=== PATIENT | male | born 1930 | race Caucasian/White ===

== ENCOUNTER 2017-02-17 09:49 | Inpatient (IN) | payer MEDICARE, OTHER ==
--- NOTE | ~2017-02-17 | DS ---
Discharge Summary [id number] [place]. [address] NAME: ROYAL BARTLETT : 30 STATUS : DIS IN PAT#: [id number] AGE: 86 ADM/REG DATE : 02/17/17 MR#: [id number] REPORT SERV DATE: 02/21/17 DICTATED BY: DATE: REPORT STATUS : Draft TRANSCRIBED BY: MODL DATE: 02/20/17 ADMISSION DATE: 02/17/2017 DISCHARGE DATE: 02/20/2017 DISCHARGE DIAGNOSES: 1. Suspected pneumonia. 2. Chronic obstructive pulmonary disease, acute exacerbation. 3. Mild increase in baseline creatinine. 4. Leukocytosis, acute. 5. Acute on chronic hypoxic respiratory failure. 6. Hyperglycemia. 7. Idiopathic thrombocytopenic purpura, chronic. 8. Constipation. CONSULTATIONS: Marcell Shen M.D., [facility]. PERTINENT TESTS AND PROCEDURES: 1. Chest x-ray 02/17/2017. Impression: No acute cardiopulmonary abnormality. Stable chronic interstitial lung changes. 2. CT of chest without contrast, 02/18/2017. Impression:. a. Minimal infiltrate in the posterior right lower lobe which may represent pneumonia. This is superimposed on bilateral reticular fibrotic opacity which is similar compared with 12/02/2016. b. 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 Left renal artery stent. Abdominal aortic stent graft only partially imaged. c. No significant abnormalities otherwise. 3. Blood cultures x2 sites, specimen collected on 02/17/2017, preliminary result, no growth at one day. 4. Sputum culture sample specimen collected 02/17/2017, test not performed due to poor quality specimen. 5. Wound care evaluation to chronic right lower extremity ischemic ulcer. Recommendations included cleansing wound with wound equipment cleaner and tester, pat dry, apply a small piece of Aquacel Ag to wound and secure with Mepilex border dressing. Change every three days. HOSPITAL COURSE: Please refer to history and physical dated 02/17/[address] Lissette Alexis for complete details pertaining to the patient's health history and initial presentation upon admission. Briefly, the patient is an 86-year-old male with a past medical history significant for moderate COPD, chronic shortness of breath on exertion, chronic hypoxemia, pulmonary fibrosis, obstructive sleep apnea/CPAP, ITP, peripheral vascular disease, and restless legs syndrome. The patient presented to the emergency department on 02/17/2017 with complaints of fever, increasing shortness of breath, and cough with yellowish green sputum production present two to three days prior to ER visit. Discharge Summary [address] [place]. [address] NAME: ROYAL BARTLETT : 30 STATUS : DIS IN PAT#: [id number] AGE: 86 ADM/REG DATE : 02/17/17 MR#: [id number] REPORT SERV DATE: 02/21/17 DICTATED BY: DATE: REPORT STATUS : Draft TRANSCRIBED BY: MODL DATE: 02/20/17 Initial assessment concerning for likely pneumonia and acute exacerbation of chronic obstructive pulmonary disease in the setting of chronic respiratory failure. The patient was admitted for further evaluation and treatment. 1. Suspected pneumonia. The patient's temperature max during this admission was 101.4 degrees. The patient has been afebrile for over 48 hours now. Sputum culture was not completed secondary to poor quality specimen. CT of the chest was concerning for minimal infiltrate in the post right lower lung likely pneumonia. The patient was placed on antibiotics and IV methylprednisolone. Levaquin dose was adjusted to every 48 hours secondary to mild increase in creatinine. The patient will continue Levaquin 750 mg p.o. every 48 hours. Next dose is on and 02/23/2017 to complete a total seven-day therapy. The patient will transition from IV methylprednisolone to prednisone 20 mg p.o. twice daily starting 02/21/2017 with taper to continue through 02/23/2017. At the time of discharge, the patient's respiratory status has almost returned to baseline, will follow up within next week with Pulmonology. 2. Mild increase in creatinine. Baseline creatinine appears to be around 1.2. The patient states he takes Advil PM every night routinely. He was advised to discontinue this med due to elevated creatinine. Excretion of sodium is 0.93% indicating prerenal. Continue to avoid nephrotoxic medications upon discharge and resume Avapro today evening dose. 3. Leukocytosis, acute. Upon admission the patient's white blood count was reported to be 12,500 secondary to infection. White blood count trended down on 02/18/2017 and then spiked to 22.8 on 02/19/2017, the spike was likely related to aggressive treatment with IV methylprednisolone. White blood count has trended down today and is 20.2. The patient is afebrile and clinically showing significant signs of improvement. 4. Acute on chronic hypoxic respiratory failure. The patient is under the outpatient care of Dr. Perry. The patient has home O2 that was set up prior to this admission. O2 saturations on day of discharge resting, room air sat at rest 95%, exercise saturation on room air 88-94%, exercise saturation on oxygen 95% at 2 L. Continue home O2 as needed and nighttime CPAP. 5. Hyperglycemia. The patient has no history of diabetes, A1c is 5.7, this is secondary to aggressive steroid therapy. The patient received Levemir and sliding scale insulin during this admission. No additional outpatient agents were required for hyperglycemia, this should resolve once the patient's dose of steroid have been completed on 02/23/2017. 6. ITP. This is chronic and managed per Dr. Shen at [facility]. The patient's Nplate therapy was held during admission. The patient will follow up next week with Oncology. 7. Constipation. The patient will continue bowel regimen at home to include MiraLAX and Senokot as needed. DISCHARGE CONDITION: At the time of discharge, the patient is hemodynamically stable. DISCHARGE DIET: Low-cholesterol/low-fat diet. DISCHARGE MEDICATIONS: 1. Allopurinol 300 mg p.o. daily. Discharge Summary [address] [address] NAME: ROYAL BARTLETT : 30 STATUS : DIS IN PAT#: [id number] AGE: 86 ADM/REG DATE : 02/17/17 MR#: [id number] REPORT SERV DATE: 02/21/17 DICTATED BY: DATE: REPORT STATUS : Draft TRANSCRIBED BY: MODL DATE: 02/20/17 2. Norvasc 5 mg tablet p.o. daily. 3. Avapro 300 mg tablet p.o. daily. Next dose to start in the morning, temporally held due to mild increase in creatinine. 4. Imdur 30 mg tablet p.o. daily. 5. Claritin 10 mg tablet p.o. daily. 6. MiraLAX 17 g p.o. daily at bedtime. Hold for diarrhea. 7. Mirapex 1 mg tablet p.o. at bedtime. 8. Incruse Ellipta 62.5 mcg one puff inhale daily. 9. Prednisone 20 mg tablet p.o. twice daily, starting tomorrow to be titrated to stop on 02/23/2017. 10.Albuterol metered dose inhaler, one puff as needed for shortness of breath every 4 hours. 11.Advair Diskus 25/50 mcg one puff inhale twice daily. 12.DuoNeb inhalation therapy every 4 hours as needed. 13.Nplate injection weekly on Wednesdays to be restarted per Oncology. 14.Hjht-kpt-lwerzsc Tears one drop in each eye twice daily as needed. 15.Docusate sodium 100 mg tablet p.o. daily as needed. 16.Florajen eall-oax-bfcnmmv tablet p.o. daily. 17.Tylenol 325 mg tablet, take 650 mg p.o. every 4 hours as needed. 18.Levaquin 750 mg tablet p.o. every 48 hours x2 doses on 02/21/2017 and 02/23/2017 to complete a total seven-day therapy then stop. DISCHARGE INSTRUCTIONS: 1. Follow up with Dr. Perry, Pulmonology, within one week. 2. Follow up with Dr. Barth, [facility], within one week. 3. Follow up with Dr. Abhi Bowden, Primary Care, in two weeks. 4. Follow up with Dr. Shen, [facility], next Thursday. 5. Follow up with Dr. Dahl, Cardiology, next appointment scheduled in two weeks. The patient was instructed to return to the emergency department for any acute onset of fever 100.4 or greater lasting more than one hour, increased shortness of breath requiring higher supplemental oxygen from baseline or any other deviations from baseline status at the time of this discharge. DICTATED BY: TEVIN Gee/ÁNGEL TEVIN Gee / [id number] CC: Discharge Summary [address] [address] NAME: ROYAL BARTLETT : 30 STATUS : DIS IN PAT#: [id number] AGE: 86 ADM/REG DATE : 02/17/17 MR#: [id number] REPORT SERV DATE: 02/21/17 DICTATED BY: DATE: REPORT STATUS : Draft TRANSCRIBED BY: ÁNGEL DATE: 02/20/17 MD Abhi Polanco II, M.D.
--- NOTE | ~2017-02-17 | HP ---
History And Physical [id number] [place]. [address] NAME: ROYAL BARTLETT : 30 STATUS : ADM IN [facility]#: [id number] AGE: 86 ADM/REG DATE : 02/17/17 MR#: [id number] REPORT SERV DATE: 02/17/17 DICTATED BY: LISSETTE FRANKLIN DATE: 02/17/17 REPORT STATUS : Draft TRANSCRIBED BY: MODL DATE: 02/17/17 DATE OF ADMISSION: 02/17/2017 CHIEF COMPLAINT: Fever, increasing shortness of breath, yellowish green sputum production, wheezing for two to three days. HISTORY OF PRESENT ILLNESS: This is a very pleasant 86-year-old gentleman. He has a history of pulmonary fibrosis, history of COPD, obstructive sleep apnea. He is on oxygen at night and intermittently during the day. He has chronic ITP under Dr. Shen. He is taking Nplate injections every Thursday per Dr. Shen's recommendation. He also has a history of hypertension and history of gout. Presenting today to [facility] [place], accompanied by his with increasing shortness of breath, cough, wheezing, and productive greenish sputum for two to three days. Also, progressively weakness and some diarrhea. He says that his sputum is dark greenish-yellowish in color. It is accompanied by fever as well as wheezes as well as nasal drip. No nausea or vomiting. No headaches. No chest pain. No palpitations. No hematemesis, melena, hematochezia, but he had some subjective fevers and obviously chills. The patient denies any current antibiotic use. No sick contacts. Also, he does have a history of pneumonia. He has been evaluated in the emergency room, and after initial evaluation, Hospitalist Service has been asked for admission, further evaluation, and treatment. PAST MEDICAL HISTORY: Significant for COPD, obstructive sleep apnea, steroid myopathy, ITP, basal cell cancer, peripheral vascular disease with a prior stent on the right leg also, history of restless legs syndrome. PAST SURGICAL HISTORY: Include tonsillectomy, cholecystectomy, renal stent, hernia repair, abdominal aortic aneurysm repair, basal cell cancer removal, and stent on the right leg. SOCIAL HISTORY: He is not a smoker, he quit about 40 years ago. No alcohol. No IV drugs. FAMILY HISTORY: Significant for cancer and coronary artery disease. MEDICATIONS AT HOME: Include DuoNeb, Ventolin, allopurinol, Norvasc, Artificial Tears, Colace, Advair Diskus, Avapro, Imdur, Claritin, Mirapex, Incruse Ellipta, Nplate ingestion, and Florajen dtvp-xoi-wskesyk probiotic. REVIEW OF SYSTEMS: A 14-point review of system has been obtained and pertinent positive has been listed into the history of present illness. Otherwise, negative except those underlying above. PHYSICAL EXAMINATION: VITAL SIGNS: T-max 101.4, blood pressure 180/81, heart rate 90, respiratory rate 26, saturating about 96% on 3 L of oxygen. GENERAL: He is a very pleasant, well-developed, well-nourished gentleman, in mild-to- moderate respiratory distress. He is alert and oriented x3. He is a full code. He follows all his commands appropriately. History And Physical [address] [address] NAME: ROYAL BARTLETT : 30 STATUS : ADM IN [facility]#: [id number] AGE: 86 ADM/REG DATE : 02/17/17 MR#: [id number] REPORT SERV DATE: 02/17/17 DICTATED BY: LISSETTE FRANKLIN DATE: 02/17/17 REPORT STATUS : Draft TRANSCRIBED BY: ÁNGEL DATE: 02/17/17 HEENT: Pupils equal, round, reactive to light. Extraocular movements intact. No JVD. No lymphadenopathy. No thyromegaly appreciated. CHEST: Bilateral air entry. Bilateral wheezes and rhonchi, I do not appreciate. There are some fine inspiratory crackles at the bases. CARDIOVASCULAR: Regular rate and rhythm. S1, S2 positive. No S3, no S4. No murmurs, rubs, or gallops appreciated. ABDOMEN: Soft with positive bowel sounds. Nontender. No guarding. No rebound. EXTREMITIES: No clubbing, cyanosis, or edema. NEUROLOGIC: He is alert and oriented x3. Nonfocal. He follows all his commands appropriately. LABORATORY DATA: Labs from today ABG, 745, 32, 76, on 32% FiO2. His sodium is 137, potassium 5.3, chloride 103, CO2 of 27, BUN 22, creatinine is 1.24, glucose is 161. His liver function test shows a total bilirubin of 0.7, alkaline phosphatase 173, ALT 31, AST 25. Also, his white count is 12.5, hemoglobin 14.2, hematocrit 43, platelets 286. His blood cultures currently are pending. EKG shows normal sinus rhythm with normal EKG. Chest x-ray, PA and lateral, has shown no acute cardiopulmonary abnormality, stable chronic interstitial lung disease. ASSESSMENT: This is an 86-year-old gentleman with increasing shortness of breath, cough, fever, yellowish sputum production with 1. Likely pneumonia. 2. Acute exacerbation of chronic obstructive pulmonary disease. 3. Acute respiratory failure. 4. History of pulmonary fibrosis. 5. History of obstructive sleep apnea. 6. Chronic idiopathic thrombocytopenic purpura. 7. Hypertension. 8. History of peripheral arterial disease. 9. History of hypertension. 10.Hyperglycemia. 11.History of gout. PLAN: 1. The patient is going to be admitted to Hospitalist Service. Keep him on oxygen. Start him on Levaquin. Start him on steroids with rapid tapering vigorous nebulizer treatment as supportive care. Start him on Mucinex and Nasonex. Check a procalcitonin level. Check sputum, Gram stain, and culture. Check influenza screen A and B. We will get a CAT scan of the chest without contrast in the morning. 2. History of obstructive sleep apnea, on CPAP. We will continue his home CPAP. 3. History of chronic ITP. We will ask Dr. Shen to see the patient since he is receiving his Nplate injections every Thursday, [facility]. 4. History of hypertension. Continue his home medications. 5. Hyperglycemia. Accu-Cheks before meals and at bedtime. Sliding scale insulin subcutaneously level 1 and check hemoglobin A1c. 6. History of gout. We will continue his home medications. 7. Peripheral vascular disease. We will provide reasonable pain and nausea control as History And Physical [address] [address] NAME: ROYAL BARTLETT : 30 STATUS : ADM IN [facility]#: [id number] AGE: 86 ADM/REG DATE : 02/17/17 MR#: [id number] REPORT SERV DATE: 02/17/17 DICTATED BY: LISSETTE FRANKLIN DATE: 02/17/17 REPORT STATUS : Draft TRANSCRIBED BY: MODL DATE: 02/17/17 well as GI and DVT prophylaxis with SCDs, that has been discussed extensively with the patient and the patient's . All the questions have been answered in full. Further workup and recommendation pending above. CF/MODL Lissette Franklin M.D. / [id number] CC: MD Abhi Polanco II, M.D.
[~2017-02-17 09:49] MED LIST: ACET500CAP PO; ADVAIR250 INH; ADVIL PO; AMB10 PO; ARTHRITIS CREAM TOP; ASAB PO; AUG875 PO; AVAP150 PO; AVAPRO300 MG PO; BEN25 PO; CALTRAT600 PO; CO Q-10200 MG PO; COQ-10200 MG PO; DSS PO; DUONEB INH; FERRETTS325 MG PO; FISH-EPA1000 MG PO; FLOMAX4 PO; HALF81 PO; HEMOCYTE324 MG PO; IRON PO; IRON160 MG PO; L20 PO; LEVAQUIN750 MG PO; LOP50 PO; MEDROLPAK4 PO; MELATONIN5 M1 PO; MIRAPEX1 MG PO; MIRAPEX5 PO; MUCINEX600 MG PO; MULTIVITAMI1 PO; NORV5 PO; OMNICEF300 PO; P20 PO; P5 PO; PROMEGA PO; RITUXAN IV; TOPXL50 PO; VITAMIN D1000 UNI1 PO; X25 PO; Z300 PO; ZITH250 PO; [UNRECOGNIZED DRUG - OTHER] IM
[2017-02-17 11:08] LABS: BASOPHILS 0.6 %; BASOPHILS ABSOLUTE 0.08 10/3/uL (0.0-0.16); EOSINOPHILS 2.3 %; EOSINOPHILS ABSOLUTE 0.29 10/3/uL (0.0-0.53); ER CBC TAT 0 Hrs 08 Mins; HEMOGLOBIN 14.2 g/dL (13.6-17.8); IMMATURE GRANULOCYTES 2.7 %; IMMATURE GRANULOCYTES ABSOLUTE 0.34 10/3/uL (0.0-0.11); LYMPHOCYTES 12.4 %; LYMPHOCYTES ABSOLUTE 1.55 10/3/uL (0.67-4.30); MANUAL DIFF NO %; MEAN CORPUSCULAR HEMOGLOB 28.4 pg (26.0-34.0); MEAN PLATELET VOLUME 9.9 fL (9.2-13.0); MONOCYTES 9.1 %; MONOCYTES ABSOLUTE 1.14 10/3/uL (0.21-1.20); NEUTROPHILS 72.9 %; NEUTROPHILS ABSOLUTE 9.12 10/3/uL (2.02-8.40); PLATELET COUNT 286 10/3/uL (150-400); RBC DISTRIBUTION WIDTH 16.7 % (12.0-16.0); WHITE BLOOD CELLS 12.5 10/3/uL (4.5-10.5)
[2017-02-17 11:11] LABS: ALLENS TEST Pos; BE (BASE EXCESS) -1.1 MEQ/L (0 +/- 2.5); CARBOXYHEMOGLOBIN 1.8 % (0-3); HCO3 (ACTUAL BICARBONATE) 21.9 MEQ/L (23-27); HEMOBLOGIN CONTENT 14.4 G/DL (14-18); INSTRUMENT SERIAL # 8087; METHEMOGLOBIN 0.3 % (0-3); OPERATOR ID 35091; PCO2 (CO2 TENSION) 32 MMHG (35-45); PO2 (O2 TENSION) 76 MMHG (79-93); SAMPLE Arterial; pH 7.45 (7.37-7.43)
[2017-02-17 11:29] LABS: BAND NEUTROPHILS 2 %; EOSINOPHILS 2 %; EOSINOPHILS ABSOLUTE (CALC) 0.25 10/3/uL (0.0-0.53); ER DIFF TAT 0 Hrs 29 Mins; LYMPHOCYTES 9 %; LYMPHOCYTES ABSOLUTE (CALC) 1.13 10/3/uL (0.67-4.30); MONOCYTES 9 %; MONOCYTES ABSOLUTE (CALC) 1.13 10/3/uL (0.21-1.20); SEGMENTED NEUTROPHIL (0) 78 %; TOTAL NUCLEATED CELLS 100
[2017-02-17 11:30] LABS: ALBUMIN 3.6 G/DL (3.5-5.0); CALCIUM, SERUM 9.3 MG/DL (8.5-10.4); CHLORIDE, SERUM 103 MMOL/L (96-112); CREATININE 1.24 MG/DL (0.70-1.30); GFR AFRICAN AMERICAN 61 ML/MIN (>=60); GFR NON AFRICAN AMERICAN 52 ML/MIN (>=60); GLOBULIN 3.5 G/DL (2.5-4.1); PLATELET ESTIMATE ADQ (ADEQUATE); RBC MORPHOLOGY NORM (NORMAL); SGOT(AST) 25 U/L (5-40); SGPT(ALT) 31 U/L (5-65); SODIUM, SERUM 137 MMOL/L (135-148); TOTAL BILIRUBIN 0.7 MG/DL (0-1.2); TOTAL PROTEIN 7.1 G/DL (6.0-8.5)
[2017-02-17 11:31] LABS: ALKALINE PHOSPHATASE 173 U/L (45-117); BUN (BLOOD UREA NITROGEN) 22 MG/DL (6-23); CO2 (CARBON DIOXIDE) 27 MMOL/L (24-34); GLUCOSE, SERUM 161 MG/DL (60-99); POTASSIUM, SERUM 5.3 MMOL/L (3.5-5.3)
[2017-02-17] MEDS ORDERED: DUONEB INH (11:32)
[2017-02-17] MEDS ORDERED: Z300 PO (11:33)
[2017-02-17] MEDS ORDERED: AVAPRO300 MG PO (11:33)
[2017-02-17] MEDS ORDERED: MIRAPEX1 MG PO (11:33)
[2017-02-17] MEDS ORDERED: NORV5 PO (11:33)
[2017-02-17] MEDS ORDERED: INCRUSE ELLI62.5 MCG INH (11:34)
[2017-02-17] MEDS ORDERED: NPLATE IM (11:34)
[2017-02-17] MEDS ORDERED: IMDUR30 PO (11:34)
[2017-02-17] MEDS ORDERED: ADVAIR250 INH (11:34)
[2017-02-17] MEDS ORDERED: TEARS PURE OPH (11:35)
[2017-02-17] MEDS ORDERED: VENTOLIN HFA PO (11:35)
[2017-02-17] MEDS ORDERED: D.O.S.100 MG PO (11:36)
[2017-02-17] MEDS ORDERED: FLORAGEN PO (11:36)
[2017-02-17] MEDS ORDERED: CLARIT10 PO (11:36)
[2017-02-17 16:45] LABS: FREE T4 1.17 NG/DL (0.76-1.46); TROPONIN I <0.02 NG/ML (<0.05)
[2017-02-17 16:47] LABS: PHOSPHORUS, SERUM 1.8 MG/DL (2.5-4.5)
[2017-02-17 17:06] LABS: INTERNATIONAL NORMAL RATI 1.2 UNITS (-); PARTIAL THROMBO TIME 36.4 SEC (22.5-37.2)
[2017-02-17 18:03] LABS: PROCALCITONIN 0.11 ng/mL (<0.5)
[2017-02-17 20:09] LABS: ASCORBIC ACID (UR NOT ORDER) NEG (NEG); BILIRUBIN, URINE NEGATIVE (NEG); KETONE, URINE NEGATIVE (NEG); LEUKOCYTE ESTERASE(NOT OR NEG (NEG); WBC (NOT ORDERED) (RFLEX) 5 (0-5)
[2017-02-18 05:21] LABS: A/G RATIO 0.8 (0.7-1.9); ALBUMIN 2.9 G/DL (3.5-5.0); CALCIUM, SERUM 8.6 MG/DL (8.5-10.4); CHLORIDE, SERUM 101 MMOL/L (96-112); CREATININE 1.46 MG/DL (0.70-1.30); GFR AFRICAN AMERICAN 50 ML/MIN (>=60); GFR NON AFRICAN AMERICAN 43 ML/MIN (>=60); GLOBULIN 3.5 G/DL (2.5-4.1); POTASSIUM, SERUM 4.7 MMOL/L (3.5-5.3); SGOT(AST) 14 U/L (5-40); SGPT(ALT) 23 U/L (5-65); SODIUM, SERUM 131 MMOL/L (135-148); TOTAL PROTEIN 6.4 G/DL (6.0-8.5)
[2017-02-18 05:22] LABS: ALKALINE PHOSPHATASE 132 U/L (45-117); BUN (BLOOD UREA NITROGEN) 27 MG/DL (6-23); CO2 (CARBON DIOXIDE) 19 MMOL/L (24-34); GLUCOSE, SERUM 332 MG/DL (60-99)
[2017-02-18 05:24] LABS: BASOPHILS 0.5 %; BASOPHILS ABSOLUTE 0.06 10/3/uL (0.0-0.16); EOSINOPHILS 0.2 %; EOSINOPHILS ABSOLUTE 0.02 10/3/uL (0.0-0.53); HEMATOCRIT 39.5 % (40.0-51.0); IMMATURE GRANULOCYTES 3.4 %; IMMATURE GRANULOCYTES ABSOLUTE 0.39 10/3/uL (0.0-0.11); LYMPHOCYTES 6.2 %; MEAN CORPUS HGB CONC 32.9 g/dL (32.0-36.0); MEAN CORPUSCULAR VOLUME 85.1 fL (80-100); MEAN PLATELET VOLUME 10.2 fL (9.2-13.0); MONOCYTES 1.9 %; MONOCYTES ABSOLUTE 0.22 10/3/uL (0.21-1.20); NEUTROPHILS 87.8 %; NEUTROPHILS ABSOLUTE 9.98 10/3/uL (2.02-8.40); PLATELET COUNT 263 10/3/uL (150-400); RBC DISTRIBUTION WIDTH 16.3 % (12.0-16.0); RED CELL COUNT 4.64 10/6/uL (4.7-6.1); WHITE BLOOD CELLS 11.4 10/3/uL (4.5-10.5)
[2017-02-18 05:27] LABS: MANUAL DIFF NO %
[2017-02-19 07:06] LABS: BASOPHILS 0.1 %; BASOPHILS ABSOLUTE 0.03 10/3/uL (0.0-0.16); EOSINOPHILS 0 %; EOSINOPHILS ABSOLUTE 0.01 10/3/uL (0.0-0.53); HEMATOCRIT 40.1 % (40.0-51.0); HEMOGLOBIN 13.3 g/dL (13.6-17.8); IMMATURE GRANULOCYTES ABSOLUTE 0.68 10/3/uL (0.0-0.11); LYMPHOCYTES 4.6 %; LYMPHOCYTES ABSOLUTE 1.04 10/3/uL (0.67-4.30); MEAN CORPUS HGB CONC 33.2 g/dL (32.0-36.0); MEAN CORPUSCULAR VOLUME 84.4 fL (80-100); MEAN PLATELET VOLUME 10.4 fL (9.2-13.0); MONOCYTES 4.4 %; NEUTROPHILS 87.9 %; NEUTROPHILS ABSOLUTE 20.01 10/3/uL (2.02-8.40); RBC DISTRIBUTION WIDTH 16.2 % (12.0-16.0); RED CELL COUNT 4.75 10/6/uL (4.7-6.1)
[2017-02-19 07:08] LABS: MANUAL DIFF NO %; PLATELET COUNT 350 10/3/uL (150-400); WHITE BLOOD CELLS 22.8 10/3/uL (4.5-10.5)
[2017-02-19 07:10] LABS: BUN (BLOOD UREA NITROGEN) 40 MG/DL (6-23); CALCIUM, SERUM 9.2 MG/DL (8.5-10.4); CHLORIDE, SERUM 103 MMOL/L (96-112); CO2 (CARBON DIOXIDE) 22 MMOL/L (24-34); CREATININE 1.64 MG/DL (0.70-1.30); GFR AFRICAN AMERICAN 43 ML/MIN (>=60); GFR NON AFRICAN AMERICAN 37 ML/MIN (>=60); GLUCOSE, SERUM 285 MG/DL (60-99); POTASSIUM, SERUM 4.9 MMOL/L (3.5-5.3); SODIUM, SERUM 135 MMOL/L (135-148)
[2017-02-20 06:20] LABS: CREATININE, URINE 68.2 MG/DL
[2017-02-20 06:34] LABS: HEMATOCRIT 39.1 % (40.0-51.0); HEMOGLOBIN 13.5 g/dL (13.6-17.8); MEAN CORPUS HGB CONC 34.5 g/dL (32.0-36.0); MEAN CORPUSCULAR HEMOGLOB 29.2 pg (26.0-34.0); MEAN CORPUSCULAR VOLUME 84.6 fL (80-100); MEAN PLATELET VOLUME 9.9 fL (9.2-13.0); PLATELET COUNT 314 10/3/uL (150-400); RBC DISTRIBUTION WIDTH 16.2 % (12.0-16.0); RED CELL COUNT 4.62 10/6/uL (4.7-6.1); WHITE BLOOD CELLS 20.2 10/3/uL (4.5-10.5)
[2017-02-20 06:35] LABS: MANUAL DIFF YES %
[2017-02-20 06:39] LABS: BUN (BLOOD UREA NITROGEN) 41 MG/DL (6-23); CALCIUM, SERUM 8.8 MG/DL (8.5-10.4); CHLORIDE, SERUM 104 MMOL/L (96-112); CO2 (CARBON DIOXIDE) 24 MMOL/L (24-34); CREATININE 1.35 MG/DL (0.70-1.30); GFR AFRICAN AMERICAN 55 ML/MIN (>=60); GFR NON AFRICAN AMERICAN 47 ML/MIN (>=60); GLUCOSE, SERUM 247 MG/DL (60-99); SODIUM, SERUM 136 MMOL/L (135-148)
[2017-02-20 06:53] LABS: BAND NEUTROPHILS 5 %; IMMATURE GRANS ABSOLUTE (CALC) 0.61 10/3/uL (0.0-0.11); LYMPHOCYTES 1 %; METAMYELOCYTES 2 %; MONOCYTES 3 %; MONOCYTES ABSOLUTE (CALC) 0.61 10/3/uL (0.21-1.20); MYELOCYTES 1 %; NEUTROPHILS ABSOLUTE (CALC) 18.79 10/3/uL (2.02-8.40); PLATELET ESTIMATE ADQ (ADEQUATE); SEGMENTED NEUTROPHIL (0) 88 %; TOTAL NUCLEATED CELLS 100
[2017-02-20] MEDS ORDERED: MIRALAX POWDER1 PKT (13:05)
[2017-02-20] MEDS ORDERED: P20 PO ×2 (13:07→13:13)
[2017-02-20] MEDS ORDERED: P10 PO (13:08)
[2017-02-20] MEDS ORDERED: T PO (13:09)
[2017-02-20] MEDS ORDERED: LEVAQUIN750 MG PO (13:11)
[2017-03-24] MEDS ORDERED: DYMISTA NASAL S23 GM NAS (12:11)
[2017-03-24] MEDS ORDERED: DALIRESP500 MCG PO (12:11)
[2017-03-24] MEDS ORDERED: ACIDOPHILU2 PO (12:12)
[2017-03-24] MEDS ORDERED: SONATA10 MG PO (12:12)
[2017-06-02] MEDS ORDERED: P10 PO (16:26)
[2017-06-02] MEDS ORDERED: INCRUSE ELLI62.5 MCG INH (16:26)
[2017-06-02] MEDS ORDERED: NORV5 PO (16:27)
[2017-06-02] MEDS ORDERED: ADVAIR250 INH (16:27)
[2017-06-02] MEDS ORDERED: SONATA10 MG PO (16:27)
[2017-06-02] MEDS ORDERED: Z300 PO (16:27)
[2017-06-02] MEDS ORDERED: AVAPRO300 MG PO (16:28)
[2017-06-02] MEDS ORDERED: MIRAPEX1 MG PO (16:28)
[2017-06-02] MEDS ORDERED: ALBUTEROL0.083 % INH (16:29)
[2017-06-02] MEDS ORDERED: HALF81 PO (16:29)
[2017-06-02] MEDS ORDERED: COMBIVENT RESPIM4 GM INH (16:30)
[2017-06-02] MEDS ORDERED: DYMISTA NASAL S23 GM NAS (16:30)
[2017-06-02] MEDS ORDERED: NPLATE SC (16:31)
[2017-06-02] MEDS ORDERED: SINGULAIR1 PO (16:31)
[2017-06-02] MEDS ORDERED: BION TEARS OPH (16:31)
[2017-06-06] MEDS ORDERED: LEVAQUIN750 MG PO (08:15)
[2017-06-06] MEDS ORDERED: STERAPRED DS10 MG (08:16)
== END 2017-02-20 15:09 | disposition home health service (06) | DRG 189 ==
LOC: ER 09:49 → 7NO 14:48
PROVIDERS: Emergency Medicine; Internal Medicine; Nurse Practitioner Family
DX: J96.21 Acute and chronic respiratory failure with hypoxia (principal); J18.9 Pneumonia, unspecified organism; D69.3 Immune thrombocytopenic purpura; J44.0 Chronic obstructive pulmonary disease with (acute) lower respiratory infection; J84.10 Pulmonary fibrosis, unspecified; L97.819 Non-pressure chronic ulcer of other part of right lower leg with unspecified severity; J44.1 Chronic obstructive pulmonary disease with (acute) exacerbation; I73.9 Peripheral vascular disease, unspecified; I10 Essential (primary) hypertension; G47.33 Obstructive sleep apnea (adult) (pediatric); R73.9 Hyperglycemia, unspecified; K59.00 Constipation, unspecified; I25.10 Atherosclerotic heart disease of native coronary artery without angina pectoris; G25.81 Restless legs syndrome; T38.0X5A Adverse effect of glucocorticoids and synthetic analogues, initial encounter; Z99.81 Dependence on supplemental oxygen; Z87.891 Personal history of nicotine dependence; Z95.828 Presence of other vascular implants and grafts
CPT/HCPCS: 36600; 71020; 71250; 80048; 80053; 81001; 82570; 82805; 82962; 83036; 83615; 83735; 83880; 84100; 84145; 84300; 84439; 84443; 84484; 85025; 85610; 85730; 87040; 87070; 87205; 87449; 93005; 94640; 96365; 96366; 99285; A9270-GY; J1956; J2930